=== PATIENT | female | born 1985 | race Two or more races ===

== ENCOUNTER 2016-10-08 11:00 | Outpatient (CLI) | payer OTHER | END 2016-10-08 23:59 | DX: M25.50 Pain in unspecified joint (principal); M79.1 Myalgia; R76.8 Other specified abnormal immunological findings in serum ==

== ENCOUNTER 2017-02-25 07:23 | Outpatient (CLI) | payer OTHER ==
[2017-02-25 12:50] LABS: BILIRUBIN,URINE NEGATIVE (NEGATIVE); PH,URINE 6.5 PH (5.0-7.5)
[2017-02-25 12:57] LABS: BASOPHILS % (AUTO) 0.4 %; EOSINOPHILS # (AUTO) 0.2 10^3/uL (0.0-0.7); EOSINOPHILS % (AUTO) 2.8 %; HCT - HEMATOCRIT 41.7 % (37.0-47.0); HGB - HEMOGLOBIN 14.3 g/dL (12.0-16.0); LYMPHOCYTES # (AUTO) 2.3 10^3/uL (1.5-3.5); LYMPHOCYTES % (AUTO) 31.4 %; MEAN CORPUSCULAR HEMOGLOBIN 33.1 pg (27.0-31.0); MEAN CORPUSCULAR HGB CONC 34.2 g/dL (32.0-36.0); MEAN CORPUSCULAR VOLUME 96.8 fL (81.0-99.0); MEAN PLATELET VOLUME 9.6 fL (7.9-10.8); MONOCYTES # (AUTO) 0.7 10^3/uL (0.0-1.0); MONOCYTES % (AUTO) 9.5 %; NEUTROPHILS % (AUTO) 55.9 %; RED CELL DISTRIBUTION WIDTH 12.9 % (12.0-15.0); UNCORRECTED WHITE BLOOD COUNT 7.2 x10^3/uL; WHITE BLOOD COUNT 7.2 x10^3/uL (4.8-10.8)
[2017-02-25 13:05] LABS: WBC,URINE 0-3 /HPF (0-5)
[2017-02-25 13:48] LABS: ALBUMIN/GLOBULIN RATIO 1.5 (1.0-2.2); BILIRUBIN,TOTAL 0.8 mg/dL (0.2-1.0); BUN - BLOOD UREA NITROGEN 13 mg/dL (6-20); CALCIUM 9.2 mg/dL (8.5-10.3); CARBON DIOXIDE - CO2 26 mmol/L (21-32); CHLORIDE 103 mmol/L (101-111); CREATININE 0.6 mg/dL (0.4-1.0); GFR - MDRD 117 (>89); GLUCOSE 92 mg/dL (70-100); POTASSIUM 3.9 mmol/L (3.5-5.0); SODIUM 137 mmol/L (135-145); TOTAL PROTEIN 7.4 g/dL (6.7-8.2)
[2017-02-27 12:03] LABS: COMPLEMENT COMPONENT C3C 109 mg/dL (90-180); COMPLEMENT COMPONENT C4C 19 mg/dL (16-47)
[2017-03-02 06:53] LABS: ANA SCREEN POSITIVE (NEGATIVE)
== END 2017-02-25 07:24 | disposition home or self-care (01) ==
LOC: LAB.WCP 07:23
PROVIDERS: ATTEND Internal Medicine Rheumatology
DX: K12.0 Recurrent oral aphthae (principal)
CPT/HCPCS: 36415; 80053; 81001; 85025; 85651; 86038; 86140; 86160

== ENCOUNTER 2017-03-17 15:38 | Outpatient (CLI) | payer OTHER ==
--- NOTE | 2017-03-18 14:01 | MRI Report ---
EXAM: RIGHT HAND SECOND DIGIT MR WITHOUT CONTRAST EXAM DATE: 03/17/2017 05:12 PM. CLINICAL HISTORY: Right index finger swelling. COMPARISON: None. TECHNIQUE: Multiplanar, multisequence T1-weighted and fluid-sensitive sequences of the finger without contrast. Other: None. FINDINGS: Bones: No fractures or subluxations. No marrow edema. No bone lesions. Cartilage: The articular cartilage is unremarkable. Ligaments: The radial and ulnar collateral ligaments are intact. Tendons: The flexor and extensor tendons are unremarkable. The visualized pulleys are intact. Musculature: No edema or fatty atrophy. Other: No joint effusions or capsular rupture. Focal area of concern corresponds to a condensation of fat on all pulse sequences, well circumscribed and medial and volar to the flexor mechanism of the s econd finger. This is 9.4 x 11 mm transversely and extends for 13 mm cephalocaudal extent. No abnorma l fluid in the flexor tendon sheath. IMPRESSION: 1. Focal area of concern corresponds to a benign lipoma, located in the lateral volar aspect of the s econd proximal finger, separate and distinct from the otherwise normal-appearing flexor mechanism. [facility] SECTION Referring Provider Line: [phone] SITE ID: [id number]
== END 2017-03-17 15:39 | disposition home or self-care (01) ==
LOC: DI 15:38
DX: D17.79 Benign lipomatous neoplasm of other sites (principal)

== ENCOUNTER 2017-08-05 15:44 | Emergency (ER) | payer OTHER ==
[2017-08-05 15:59] VITALS: BP 122/77
[2017-08-05] MEDS ORDERED: LIDOCAINE PATCH 5% TOP STA (16:02)
--- NOTE | 2017-08-05 16:04 | ED Physician Documentation ---
History of Present Illness - Stated complaint Stated Complaint: PAINFUL RASH LT ARM - Chief complaint Chief Complaint: Wound - Additonal information Additional information: hx from pt 32 f not has mirena pmhx lupus on plaquenil itching burning pain to R tricep region for a few days and now a pink rash with hint of vesicles she has a few valtrex at home already and took a dose prior to coming in Review of Systems Constitutional: denies: Fever : denies: Now EGA Skin: reports: Rash PD PAST MEDICAL HISTORY - Past Medical History Cardiovascular: None Respiratory: Asthma, Other Neuro: Headache/migraine Endocrine/Autoimmune: Systemic lupus erythematosus GI: GERD, Other : None HEENT: Chronic sinusitis Psych: Anxiety Musculoskeletal: Fibromyalgia Derm: None - Past Surgical History Past Surgical History: Yes General: Cholecystectomy, Colonoscopy, EGD Ortho: Arthroscopic surgery, 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) - Present Medications Home Medications: Ambulatory Orders Medication Instructions Recorded Confirmed Indomethacin [Indocin] 25 mg PO BIDWM PRN #20 capsule 07/21/15 10/19/15 Hydroxychloroquine [Plaquenil] 200 mg PO BID 10/19/15 10/19/15 Azithromycin [Zithromax] 250 mg PO DAILY #6 tablet 03/26/16 Budesonide/Formoterol Fumarate 03/26/16 [Symbicort 80-4.5 Mcg Inhaler] Pseudoephedrine [Sudafed] 60 mg 03/26/16 guaiFENesin/CODEINE [Robitussin AC] 5 - 10 ml PO Q6H PRN #120 ml 03/26/16 predniSONE [Deltasone] 60 mg PO DAILY 5 Days tablet 03/26/16 Lidocaine Patch 5% [Lidoderm Patch] 1 each TOP DAILY PRN #10 patch 08/05/17 Valacyclovir HCl [Valtrex] 1,000 mg PO TID #21 tablet 08/05/17 - Allergies Allergies/Adverse Reactions: Allergies Allergy/AdvReac Type Severity Reaction Status Date / Time Cephalosporins Allergy Intermediate Hives Verified 08/05/17 15:54 diphenhydramine Allergy Intermediate Hives Verified 08/05/17 15:54 - Social History Does the pt smoke?: No Smoking Status: Never smoker Does the pt drink ETOH?: Yes Does the pt have substance abuse?: No - Immunizations Immunizations are current?: Yes - POLST Patient has POLST: No PD ED PE NORMAL - Vitals Vital signs reviewed: Yes - Cardiac Cardiac: RRR - Respiratory Respiratory: No respiratory distress, Clear bilaterally - Derm Derm: Other (RUE tricep region small erythematous patch with very fine sup vesicles) Results - Vitals Vitals: Vital Signs - 24 hr 08/05/17 15:51 Heart Rate 86 Respiratory 16 Rate Blood Pressure 122/77 O2 Saturation 100 Oxygen O2 Source Room air PD MEDICAL DECISION MAKING - ED course ED course: sounds c/w shingles though rash still very early on plaquenil so slightly immunocomp - will tx Departure - Departure Disposition: Home, Self Care Clinical Impression: Shingles Qualifiers: Herpes zoster complications: without complications Qualified Code(s): B02.9 - Zoster without complications Condition: Good Instructions: ED Shingles Follow-Up: Abhinav Sanchez MD [Primary Care Provider] - Prescriptions: Lidocaine Patch 5% [Lidoderm Patch] 1 each TOP DAILY PRN #10 patch PRN Reason: Pain Valacyclovir HCl [Valtrex] 1,000 mg PO TID #21 tablet Forms: Activity restrictions
[2017-08-05] MEDS ORDERED: LIDOCAINE PATCH 5% TOP ONE (16:20)
== END 2017-08-05 16:20 | disposition home or self-care (01) ==
LOC: ED 15:44
DX: B02.9 Zoster without complications (principal); M32.9 Systemic lupus erythematosus, unspecified; Z79.52 Long term (current) use of systemic steroids; J45.909 Unspecified asthma, uncomplicated; K21.9 Gastro-esophageal reflux disease without esophagitis; M79.7 Fibromyalgia
CPT/HCPCS: 99283; A9270

== ENCOUNTER 2017-11-11 08:00 | Outpatient (CLI) | payer OTHER | END 2017-11-11 08:01 | disposition home or self-care (01) | LOC: LAB.R 08:00 | PROVIDERS: ATTEND Internal Medicine Gastroenterology | DX: K50.90 Crohn's disease, unspecified, without complications (principal) | CPT/HCPCS: 83993 ==

== ENCOUNTER 2018-05-13 13:11 | Outpatient (CLI) | payer OTHER | END 2018-05-13 13:12 | disposition home or self-care (01) | LOC: LAB 13:11 | PROVIDERS: ATTEND Family Medicine | DX: R04.2 Hemoptysis (principal) | CPT/HCPCS: 36415; 81599; 86480 ==

== ENCOUNTER 2018-09-22 13:48 | Outpatient (CLI) | payer OTHER ==
[2018-09-23 12:28] LABS: HEPATITIS B SURFACE ANTIGEN NON-REACTIVE (NON-REACTIVE)
[2018-09-24 11:51] LABS: HCV RNA QNT <1.18 NOT DETECTED Log IU/mL (NOT DETECTED); HCV RNA QUANT RT PCR <15 NOT DETECTED IU/mL (NOT DETECTED)
== END 2018-09-22 13:49 | disposition home or self-care (01) ==
LOC: LAB.F 13:48
PROVIDERS: ATTEND Internal Medicine Gastroenterology
DX: K50.90 Crohn's disease, unspecified, without complications (principal)
CPT/HCPCS: 36415; 87340; 87522

== ENCOUNTER 2018-10-19 08:35 | Outpatient (CLI) | payer OTHER | END 2018-10-19 23:59 | disposition home or self-care (01) | LOC: LAB.WCP 08:35 | PROVIDERS: ATTEND Internal Medicine Gastroenterology | DX: K50.90 Crohn's disease, unspecified, without complications (principal) | CPT/HCPCS: 83993 ==

== ENCOUNTER 2019-03-02 06:44 | Outpatient (CLI) | payer OTHER | END 2019-03-02 06:45 | disposition home or self-care (01) | LOC: LAB 06:44 | PROVIDERS: ATTEND Internal Medicine | DX: Z53.9 Procedure and treatment not carried out, unspecified reason (principal) | CPT/HCPCS: 36415; 86317; 86735; 86762; 86765 ==

== ENCOUNTER 2019-03-20 12:52 | Outpatient (CLI) | payer OTHER | END 2019-03-20 12:53 | disposition home or self-care (01) | LOC: LAB 12:52 | PROVIDERS: ATTEND Internal Medicine Gastroenterology | DX: R19.7 Diarrhea, unspecified (principal); K50.90 Crohn's disease, unspecified, without complications | CPT/HCPCS: 81599; 83993; 86592; 87045; 87046; 87177; 87209; 87329; 87493 ==

== ENCOUNTER 2019-10-05 09:52 | Outpatient (CLI) | payer OTHER ==
--- NOTE | 2019-10-05 15:36 | XRAY Report ---
Reason: SOMATIC DYSFUNCTION LUMBAR Procedure Date: 10/05/2019 Accession Number: [id number] / [id number] Procedure: WCP - Lumbar Spine 2 View CPT Code: Final Report FULL RESULT: EXAM: LUMBOSACRAL SPINE RADIOGRAPHY EXAM DATE: 10/05/2019 09:52 AM. CLINICAL HISTORY: SOMATIC DYSFUNCTION LUMBAR. Fall. Pain. COMPARISONS: None. TECHNIQUE: 2 views. FINDINGS: Alignment: Normal. No spondylolisthesis or scoliosis. Bones: 5 lumbar vertebrae. No fractures or bone lesions. Disks: Normal. Disk heights are maintained. Facets: No degenerative changes. Sacroiliac Joints: Unremarkable. Soft Tissues: Unremarkable. IMPRESSION: Normal lumbar spine radiography. [facility]
--- NOTE | 2019-10-05 15:37 | XRAY Report ---
Reason: LEFT, RIGHT TROCHANTERIC BURSITIS Procedure Date: 10/05/2019 Accession Number: [id number] / [id number] Procedure: WCP - Pelvis 1 View CPT Code: Final Report FULL RESULT: EXAM: PELVIS RADIOGRAPHY EXAM DATE: 10/05/2019 09:52 AM. CLINICAL HISTORY: LEFT, RIGHT TROCHANTERIC BURSITIS. Pain. COMPARISON: None. TECHNIQUE: 1 view. FINDINGS: Bones: Normal. No fracture or bone lesion. Joints: The visualized hip, pubis symphysis, and sacroiliac joints are preserved. No subluxation. Soft Tissues: Unremarkable. No soft tissue calcifications. IMPRESSION: Normal pelvis radiography. [facility]
== END 2019-10-05 23:59 | disposition home or self-care (01) ==
LOC: DI.WCP 09:52
PROVIDERS: ATTEND Family Medicine
DX: M99.03 Segmental and somatic dysfunction of lumbar region (principal); M70.61 Trochanteric bursitis, right hip; M70.62 Trochanteric bursitis, left hip
CPT/HCPCS: 72100; 72170

== ENCOUNTER 2020-03-21 11:41 | Outpatient (CLI) | payer OTHER | END 2020-03-21 11:42 | disposition home or self-care (01) | LOC: LAB 11:41 | PROVIDERS: ATTEND Internal Medicine Gastroenterology | DX: K50.90 Crohn's disease, unspecified, without complications (principal) | CPT/HCPCS: 36415; 81599; 86480 ==

== ENCOUNTER 2020-08-05 12:59 | Outpatient (CLI) | payer OTHER ==
[2020-08-05 13:09] LABS: BILIRUBIN,URINE NEGATIVE (NEGATIVE); GLUCOSE, URINE (UA) NEGATIVE (NEGATIVE); KETONES,URINE (UA) NEGATIVE (NEGATIVE); LEUKOCYTE ESTERASE, URINE NEGATIVE (NEGATIVE); NITRITE,URINE NEGATIVE (NEGATIVE); OCCULT BLOOD,URINE MODERATE (NEGATIVE); PROTEIN,URINE NEGATIVE (NEGATIVE); UROBILINOGEN,URINE 0.2 (NORMAL) E.U./dL (NORMAL)
[2020-08-05 13:11] LABS: CLARITY,URINE CLEAR (CLEAR)
[2020-08-05 13:25] LABS: SQUAMOUS EPITHELIAL CELL,UR FEW Squamous (<= Few)
[2020-08-05 13:26] LABS: BACTERIA,URINE Rare /HPF (None Seen); MUCUS,URINE Few Strands
== END 2020-08-05 13:00 | disposition home or self-care (01) ==
LOC: LAB 12:59
PROVIDERS: ATTEND Family Medicine
DX: R30.0 Dysuria (principal)
CPT/HCPCS: 81001; 87086

== ENCOUNTER 2020-08-06 12:59 | Outpatient (CLI) | payer OTHER ==
[2020-08-06 13:50] VITALS: BP 113/70
--- NOTE | 2020-08-06 13:50 | SLEEP CARE CONSULTATION ---
Information from patient questionnaire entered by Tammy Davis. I have reviewed and concur with the information entered by Tammy Davis. This document represents the service I personally performed and the decisions made by me, Shreya Smith ARNP. History of Present Illness Service Date and Time: 08/06/2020 1259 Reason for Visit: New patient Chief Complaint: reports: Unrefreshed sleep, Snoring, Observed pauses in breathing, Fatigue. denies: Insomnia, Excessive daytime sleepiness, Frequent awakenings at night Date of Onset: several years Usual bedtime: 6700-9258 Time it takes to fall asleep: 5.2 seconds Snores at night: Yes (badly) Observed to quit breathing while asleep: Yes Sleeps alone due to snoring: No Number of times waking at night: 0-2 Reasons for waking at night: reports: Choking (not often), Snoring, Gasping for air (not often), Bathroom Toss, Turn, or Twitch while sleeping: Yes (*twitch) Recalls having dreams: Yes Usually gets out of bed at: 1562-1360 Feels refreshed in the morning: Yes Morning headache: No (only when grinds her sleep, uses mouth guard) Sleepy or fatigued during the day: Yes (sometimes) Ever fallen asleep while driving: No Takes day naps: Yes () Dreams during day naps: No Prior sleep studies: Yes Year and Where: 2009 or 2010 Additional HPI information: I had the pleasure of seeing JAVIER AG today regarding the possibility of her having a sleep disorder. Her current complaints are snoring and observed pauses in breathing. She had a sleep study many years ago that was negative for sleep apnea. She states her snoring has gotten worse and her has encouraged her to get it checked out. She has seen an ENT specialist for her multiple allergy problems and feels she sleeps better when she adheres better to her allergy medication regime. She has been told she has a minor sinus deviation and her doctor is willing to take out her tonsils to help reduce her snoring. She is here to rule out sleep apnea due to worsening. She states her mother and a grandfather both have sleep apnea and been on CPAP machines. She has a history of Crohn's disease and Lupus that is in remission. 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 - Parasomnia Symptoms Ever been unable to move upon waking from sleep: No Walks in sleep: No Talks in sleep: Yes Ever acted out dreams in sleep: No Ever felt weak in the knees when startled or emotional: No Bothered by creepy, crawly, restless sensations in legs: No Problems with memory or concentration: Yes (memory, has autoimmune disease) Subjective Initial [place] Sleepiness Scale score: 10 (in 2020) Past Medical History Past Medical History: reports: Arthritis, Fibromyalgia, Anxiety, Asthma, Depression, GERD, Other (chrons disease, SLE). 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 Patient is and lives in [place]. Have you smoked in the past 12 months: No Alcohol use: Yes Alcohol amount and frequency: 1-2 weekly or biweekly Caffeine use: Yes Caffeine amount and frequency: 1-2 cups/day Family History Family history of sleep disordered breathing: Yes Family Hx Sleep Apnea: Mother: Snoring, Sleep apnea - Treated, Sibling: Snoring, Grandparent: Snoring, Sleep apnea - Treated Allergies and Home Medications Drug allergies reviewed: Yes (cephalosporins, diphenhydramine) Home medication list reviewed: Yes Allergy and home medication list: Symbicort Flonase Astalin Humira zyrtec Sudafed Vitamin E Vitamin D IP6 Zinc probiotic as needed: Ibuprofen Aleve Tylenol oxycodone Review of Systems Weight loss over past 5 years: 40 Cardiovascular: denies: high blood pressure, irregular heart rate or pulse Respiratory: reports: shortness of breath, wheeze Gastrointestinal: reports: heartburn (intermittant), difficulty swallowing (intermittant), nausea (intermittant), vomitting (intermittant), diarrhea (intermittant), abdominal pain (intermittant), other (has Chrons disease) Urinary: reports: frequency, urgency Neurological: reports: headaches Psychiatric: reports: anxiety, depression Ear/Nose/Throat: reports: nasal congestion, sinus problems, wisdom teeth removed. denies: nose bleeds, dry mouth/throat, injury to nose, tonsillectomy Musculoskeletal: reports: joint pain, neck pain, back pain Immunologic: reports: sneezing, itching, allergies to food or environment (*environment) Physical Exam Blood Pressure: 113/70 Cuff size: wrist Heart Rate: 84 O2 Saturation: 98 Height: 5 ft 7 in Weight: 234 lb Body Mass Index: 36.6 BMI Classification: Obese Neck circumference: 14.5 (inches) HEENT: No craniofacial malformation Nostrils: patent to airflow Turbinates: normal Mouth and throat: narrow oropharynx Hard palate: arched Uvula visualization: 50% Mallampati Class II Tongue: enlarged in size with teeth brown on lateral edges Tonsils: 1+ Chin and jaw: normal size and position Neck: normal w/o lymphadenopathy or thyromegaly Heart: regular rate and rhythm Lungs: clear bilaterally Impression and Plan 1. Suspected Obstructive Sleep Apnea-Hypopnea Syndrome, as suggested by a history of loud and irregular snoring, observed cessation of breath while asleep, gasping or choking in sleep, unrefreshed sleep, and some cognitive impairment. I reviewed with patient that a narrow oropharynx and obesity are common predisposing factors for obstructive sleep apnea-hypopnea syndrome. I recommend proceeding to polysomnography to confirm the diagnosis and to assess severity. If the patient has significant sleep disordered breathing, a manual CPAP titration study will also be performed to find the optimal treatment pressure. I informed the patient of what the sleep studies involve and after some discussion, obtained agreement to proceed. The pathophysiology of obstructive sleep apnea-hypopnea syndrome was discussed with the patient and health risks of cardiovascular and cerebrovascular disease if not treated. AASM brochure for obstructive sleep apnea-hypopnea syndrome given and reviewed. 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 Patient agreed to plan. * Schedule polysomnography +- manual CPAP titration study. * Avoid long distance driving or driving when feeling sleepy. * Avoid alcohol, sedative and muscle relaxant around bedtime. * Attempt to lose weight. * Review instructions provided by trained office staff on how to prepare for the sleep study. * Return for follow-up after sleep study completed. Visit Type: In Office Provider Statement: I spent 100% of the Face to Face Visit with the patient with greater than 50% spent counseling the patient and coordination of care.
== END 2020-08-06 13:00 | disposition home or self-care (01) ==
LOC: SC 12:59
PROVIDERS: ATTEND Nurse Practitioner Family
DX: R06.83 Snoring (principal); R06.81 Apnea, not elsewhere classified; G47.8 Other sleep disorders; R41.89 Other symptoms and signs involving cognitive functions and awareness; E66.9 Obesity, unspecified; Z68.36 Body mass index [BMI] 36.0-36.9, adult
CPT/HCPCS: 99203; 99212

== ENCOUNTER 2020-09-04 08:59 | Outpatient (CLI) | payer OTHER | END 2020-09-04 09:00 | disposition home or self-care (01) | LOC: SC 08:59 | PROVIDERS: ATTEND Nurse Practitioner Family | DX: G47.33 Obstructive sleep apnea (adult) (pediatric) (principal); E66.9 Obesity, unspecified; Z68.36 Body mass index [BMI] 36.0-36.9, adult | CPT/HCPCS: 95806 ==

== ENCOUNTER 2020-10-10 09:53 | Outpatient (CLI) | payer OTHER ==
--- NOTE | 2020-10-10 10:32 | SLEEP CARE CONSULTATION ---
Information from patient questionnaire entered by Naina Mills. I have reviewed and concur with the information entered by Naina Mills. This document represents the service I personally performed and the decisions made by , Shreya Smith ARNP. History of Present Illness Service Date and Time: 10/10/2020 0953 Initial [place] Sleepiness Scale score: 10 (in 2020) Current [place] Sleepiness Scale score: 9 Additional HPI information: JAVIER AG returns for follow up and results of the recently performed home sleep study. I explained the pathophysiology behind obstructive sleep apnea. We then spent quite a bit of time discussing different treatment options. For mild obstructive sleep apnea, surgery and oral appliance are alternatives to nasal CPAP therapy but in moderate or severe cases, nasal CPAP is the most effective and reliable treatment. Because apnea is primarily in supine position, then positional management therapy could be effective. Methods discussed such as positioning with pillows, using a T-shirt with tennis balls in the back, and shown commercial products that have a pillow format on back to prevent supine sleep. I reviewed the impact of weight changes on sleep apnea and strongly recommended losing weight. AASM patient education Non Pap treatment pamphlet reviewed and given to patient. Patient was cautioned about risks of drowsy driving until sleepiness symptoms resolve. Sleep Study - Results Type of Sleep Study: Home sleep study Prior sleep studies: Yes Year and Where: 2009 or 2010 Polysomnography/Home Sleep Study results: Physician Impression: The quality of the study is good. The length of the study is adequate (> 240 minutes). Please also see the tabulated and graphic data. 1. Obstructive Sleep Apnea-Hypopnea (ICD-10 G47.33), moderate, with an AHI of 15.1/hr and era SaO2 of 90%. During the study, the patient had 54 apneas (54 obstructive, 0 central, 0 mixed) and 51 hypopneas. The longest episode lasted 62.5 seconds. The respiratory events occurred almost exclusively during supine sleep (supine AHI was 44.9 and non-supine, 1.47). 2. Hypoxemia (ICD-10 R09.02), , with the lowest oxygen saturation of 90 % and 0.0 minutes with SaO2 under 90%. Baseline oxygen saturation was normal (Average oxygen saturation was 96%). Allergies and Home Medications Drug allergies reviewed: Yes (cephalosporins, diphenhydramine) Home medication list reviewed: Yes Allergy and home medication list: New medications started: Cymbalta Meloxicam Advair HFA Review of Systems Review of systems same as previous: Yes (no changes) Physical Exam Heart Rate: 71 O2 Saturation: 98 Height: 5 ft 7 in Weight: 239 lb Body Mass Index: 37.4 BMI Classification: Obese Impression and Plan 1. Obstructive Sleep Apnea-Hypopnea Syndrome, moderate, with lowest oxygen saturation of 90%. Obviously this is the cause of the patients symptoms of unrefreshed sleep, and excessive daytime sleepiness. Positive pressure therapy could benefit her Crohns, Fibromyalgia, asthma, anxiety, depression and gastric reflux. I reviewed options of treatment including oral appliance, CPAP and positional management. Since patients apnea is primarily in supine position, patient advised that she could try positional therapy and she opted to go with this plan. She is also advised to lose weight as this will reduce snoring and apnea. An oral appliance can also be used for snoring but often is not covered by insurance. Follow up is scheduled for one-two months to check effectiveness. Patient also states she is going to follow up with her ENT specialist and possibly arrange to have her tonsils removed. I encouraged her to follow up here as scheduled but she may wait 3 months if she has surgery in the next 1-2 months. She voiced understanding. * Positional therapy. * Attempt to lose weight. * Avoid alcohol consumption near bedtime. * Avoid supine sleep. * The patient is again cautioned about driving until sleepiness completely resolves. * Return 1-2 months. I will assess response to therapy at that time. Counseling Topics: Weight loss health impact Visit Type: In Office Time Spent with Patient (minutes): 22 Provider Statement: I spent 100% of the Face to Face Visit with the patient with greater than 50% spent counseling the patient and coordination of care.
== END 2020-10-10 09:54 | disposition home or self-care (01) ==
LOC: SC 09:53
PROVIDERS: ATTEND Nurse Practitioner Family
DX: G47.33 Obstructive sleep apnea (adult) (pediatric) (principal); E66.9 Obesity, unspecified; Z68.37 Body mass index [BMI] 37.0-37.9, adult
CPT/HCPCS: 99212; 99213

== ENCOUNTER 2020-10-30 07:00 | Outpatient (CLI) | payer OTHER ==
[2020-10-30 17:32] LABS: CANDIDA GROUP DNA NEGATIVE (NEGATIVE); CANDIDA KRUSEI DNA NEGATIVE (NEGATIVE); TRICHOMONAS VAGINALIS DNA NEGATIVE (NEGATIVE)
== END 2020-10-30 23:59 | disposition home or self-care (01) ==
LOC: LAB.R 07:00
PROVIDERS: ATTEND Family Medicine
DX: N89.8 Other specified noninflammatory disorders of vagina (principal)
CPT/HCPCS: 87661; 87801

== ENCOUNTER 2020-12-12 15:55 | Outpatient (CLI) | payer OTHER ==
--- NOTE | 2020-12-12 16:26 | SLEEP CARE CONSULTATION ---
Information from patient questionnaire entered by Yen Henriquez. I have reviewed and concur with the information entered by Yen Henriquez. This document represents the service I personally performed and the decisions made by me, Shreya Smith ARNP. History of Present Illness Service Date and Time: 12/12/2020 1555 Previous diagnosis: Moderate, Obstructive Sleep Apnea-Hypopnea Syndrome AHI: 15.1 Reason for follow up: other (2-month followup - positional) Prior sleep studies: Yes Year and Where: 2019 [facility] Type of Sleep Study: Home sleep study HPI additional information: JAVIER AG was diagnosed to have moderate, AHI 15.1, obstructive sleep apnea- hypopnea syndrome and returned today for two month positional therapy follow-up. CPAP Compliance Data Compliance data discussion: Patient has been trying to use pillow splinting to stay on her side but this has not been very successful. She has slept with her back against her which does work and she stays on her side. 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 Subjective Initial [place] Sleepiness Scale score: 10 (in 2019) Current [place] Sleepiness Scale score: 8 Allergies and Home Medications Home medication list reviewed: Yes (Cymbalta for fibromyalgia) Review of Systems Review of systems same as previous: Yes (no changes) Physical Exam Heart Rate: 81 O2 Saturation: 97 Height: 5 ft 7 in Weight: 240 lb Body Mass Index: 37.5 BMI Classification: Obese Impression and Plan 1. Obstructive Sleep Apnea-Hypopnea Syndrome, moderate. On positional therapy, the patient has better sleep quality and is more rested overall. She also started Cymbalta over 2 months ago and feels this has been helping with her fibromyalgia and fatigue. She has decided that she would like to try the CPAP machine since she is having difficulty staying on her side. She has been using her to stay in position with her back up against him at night. She is about to go away to school and states the pillow positioning does not work for her. She thinks the CPAP might work better for her overall. The patient will be started on nasal autoCPAP therapy with pressure set at 4-15 cmH2O. Compliance guidelines also reviewed. A copy of compliance guidelines will be given for reference at check out. Because the apnea is more severe supine, I instructed to avoid sleeping supine using pillow positioning until able to start CPAP use. * Nasal auto CPAP therapy, pressure at 4-15 cm H2O. * Attempt to lose weight. * Avoid supine sleep until using CPAP. * Return one month after CPAP obtained. I will assess response to therapy and compliance at that time. Counseling Topics: Weight loss health impact Visit Type: In Office Time Spent with Patient (minutes): 21 Provider Statement: I spent 100% of the Face to Face Visit with the patient with greater than 50% spent counseling the patient and coordination of care.
== END 2020-12-12 15:56 | disposition home or self-care (01) ==
LOC: SC 15:55
PROVIDERS: ATTEND Nurse Practitioner Family
DX: G47.33 Obstructive sleep apnea (adult) (pediatric) (principal); E66.9 Obesity, unspecified; Z68.37 Body mass index [BMI] 37.0-37.9, adult
CPT/HCPCS: 99212; 99213

== ENCOUNTER 2021-01-21 10:12 | Outpatient (CLI) | payer OTHER ==
--- NOTE | 2021-01-21 10:42 | SLEEP CARE CONSULTATION ---
Information from patient questionnaire entered by Naina Mills. I have reviewed and concur with the information entered by Naina Mills. This document represents the service I personally performed and the decisions made by , Shreya Smith ARNP. History of Present Illness Service Date and Time: 01/21/2021 1012 Previous diagnosis: Moderate, Obstructive Sleep Apnea-Hypopnea Syndrome AHI: 15.1 Reason for follow up: first compliance Equipment type: CPAP [facility] Mask style: Full face Backup mask available: No (will keep old mask when replaced) Last cushion change: 1 month Prior sleep studies: Yes Year and Where: 2019 - [facility] Type of Sleep Study: Home sleep study HPI additional information: JAVIER AG was diagnosed to have moderate, AHI 15.1, obstructive sleep apnea- hypopnea syndrome and returned today for CPAP therapy first compliance follow- up. CPAP Compliance Data - Data Reviewed with Patient Average duration of nightly device use: 6 hr 13 min Compliance rate %: 63.3 Current pressure setting (cmH2O): 4-15 (median 5.9, avg 8.1, peak 9.2) Humidity settin Heated hose settin Average residual AHI: 3.7 Average large leak: 1 min 30 sec Subjective Patient concerns: reports: aerophagia. denies: mask discomfort, air blowing in eyes, mask leak noise, condensation in mask/hose, nasal congestion, dry mouth, nose, throat, epistaxis, other Observed to snore while using device: No Current pressure setting perceived as: comfortable On therapy, patient: reports: sleeping better, awakening more refreshed, being more awake and alert during the day, more rested overall. denies: drowsiness while driving Initial [place] Sleepiness Scale score: 10 (in 2019) Current [place] Sleepiness Scale score: 7 Allergies and Home Medications Home medication list reviewed: Yes (no new meds) Review of Systems Review of systems same as previous: Yes (tonsillectomy December 2020) Physical Exam Heart Rate: 74 O2 Saturation: 98 Height: 5 ft 7 in Weight: 237 lb Body Mass Index: 37.0 BMI Classification: Obese Impression and Plan 1. Obstructive Sleep Apnea-Hypopnea Syndrome, moderate, with fair treatment compliance and good apnea control. On CPAP therapy, the patient has better sleep quality and is more rested overall. She has significant improvement of her sleep apnea and is happy with her treatment so far. She has a few days with some aerophagia but it has not been every night. I will adjust her pressure to 7-9 cmH2O to reflect what she has been using and follow up in 1-2 months. Patient is leaving to go to school in [place] for next 14 months but is not moving permanently. She will be coming back to see her and child who will be living here. Patient's apnea severity and rationale for treatment to reduce apnea, improve sleep quality and reduce cardiovascular and cerebrovascular events was reviewed. I also reviewed the benefit of consistent device use of CPAP for gastric reflux, depression, anxiety and fibromyalgia. * Change auto CPAP pressure to 7-9 cmH2O * Notify me if snoring with mask or feeling that the pressure is too much or too little * Attempt to lose weight * Call this office if any problems using CPAP * Return for follow up in 1-2 months, or sooner if concerns arise Counseling Topics: Spare mask, Weight loss health impact Visit Type: In Office Time Spent with Patient (minutes): 23 Provider Statement: I spent 100% of the Face to Face Visit with the patient with greater than 50% spent counseling the patient and coordination of care.
== END 2021-01-21 10:13 | disposition home or self-care (01) ==
LOC: SC 10:12
PROVIDERS: ATTEND Nurse Practitioner Family
DX: G47.33 Obstructive sleep apnea (adult) (pediatric) (principal); E66.9 Obesity, unspecified; Z68.37 Body mass index [BMI] 37.0-37.9, adult
CPT/HCPCS: 99212; 99213

== ENCOUNTER 2021-03-13 08:42 | Outpatient (CLI) | payer OTHER ==
--- NOTE | 2021-03-13 08:43 | SLEEP CARE CONSULTATION ---
Information from patient questionnaire entered by Tammy Davis. I have reviewed and concur with the information entered by Tammy Davis. This document represents the service I personally performed and the decisions made by , Shreya Smith ARNP. History of Present Illness Service Date and Time: 03/13/2021 0820 Previous diagnosis: Moderate, Obstructive Sleep Apnea-Hypopnea Syndrome AHI: 15.1 Reason for follow up: other (6 week follow up with pressure change) Equipment type: CPAP Equipment obtained from: Other ([employer] getting supplies as needed) Mask style: Full face Backup mask available: No (old mask) Last cushion change: 2 months Prior sleep studies: Yes Year and Where: 2019 [facility] Type of Sleep Study: Home sleep study HPI additional information: JAVIER AG was diagnosed to have moderate, AHI 15.1, obstructive sleep apnea- hypopnea syndrome and returns via Telehealth visit today for CPAP therapy 6 week with pressure change follow-up. Sleep Study - Results Type of Sleep Study: Home sleep study Prior sleep studies: Yes Year and Where: 2019 [facility] CPAP Compliance Data - Data Reviewed with Patient Average duration of nightly device use: 6 hours 49 minutes Compliance rate %: 83.3 Current pressure setting (cmH2O): 7-8.5 Humidity settin Heated hose settin Average residual AHI: 4 Central apnea: 0.6 Obstructive apnea: 1.5 Average large leak: 0 seconds Subjective Patient concerns: denies: aerophagia, mask discomfort, mask leak noise, condensation in mask/hose, nasal congestion, dry mouth, nose, throat, epistaxis, other Observed to snore while using device: No Current pressure setting perceived as: comfortable On therapy, patient: reports: sleeping better, awakening more refreshed, being more awake and alert during the day, more rested overall. denies: drowsiness while driving Initial [place] Sleepiness Scale score: 10 (in 2020) Current [place] Sleepiness Scale score: 5 Allergies and Home Medications Home medication list reviewed: Yes (Bcomplex, Biotin) Review of Systems Review of systems same as previous: Yes (no changes) Physical Exam Vital signs obtained and entered by: Telehealth visit to reduce exposure during Covid pandemic Height: 5 ft 7 in Impression and Plan 1. Obstructive Sleep Apnea-Hypopnea Syndrome, moderate, with good treatment compliance and good apnea control. On CPAP therapy, the patient has better sleep quality and is more rested overall. Patient has significant improvement of her sleep apnea and is very satisfied with her treatment thus far. She states her last pressure change made all the difference and she no longer has any aerophagia. She did develop a fungal skin infection due to oils on her face with mask use. Her doctor treated it with metronidazole and it cleared up. She is now using a toner cleanser on her face prior to bedtime and has not had any further infections or rashes. Patient states she is going to try to lose weight and found a video on YouTube about toning exercises to help with snoring and sleep apnea that she is going to try. I encouraged her to do so as losing weight and toning her muscles can help reduce apnea severity. She voiced understanding and agreement with this plan of care. I will follow up with her in about 3 months. Patient's apnea severity and rationale for treatment to reduce apnea, improve sleep quality and reduce cardiovascular and cerebrovascular events was reviewed. I also reviewed the benefit of consistent device use of CPAP for gastric reflux, depression, anxiety and fibromyalgia. * Continue auto CPAP pressure at 7-8.5 cmH2O * Notify me if snoring with mask or feeling that the pressure is too much or too little * Attempt to lose weight * Call this office if any problems using CPAP * Return for follow up in 3 months, or sooner if concerns arise Counseling Topics: Spare mask, Weight loss health impact Visit Type: Telehealth Video Video Type: VSee Patient Location: Home Location of Provider: Office Patient agrees and consents to this telehealth visit type: Yes Patient agrees to have their insurance billed: Yes Time Spent with Patient (minutes): 19 Provider Statement: I spent 100% of the Telehealth Video Call with the patient with greater than 50% spent counseling the patient and coordination of care.
== END 2021-03-13 08:43 | disposition home or self-care (01) ==
LOC: SC 08:42
PROVIDERS: ATTEND Nurse Practitioner Family
DX: G47.33 Obstructive sleep apnea (adult) (pediatric) (principal)

== ENCOUNTER 2021-06-13 15:11 | Outpatient (CLI) | payer OTHER ==
--- NOTE | 2021-06-13 15:30 | SLEEP CARE CONSULTATION ---
Information from patient questionnaire entered by Yen Henriquez. I have reviewed and concur with the information entered by Yen Henriquez. This document represents the service I personally performed and the decisions made by me, Shreya Smith ARNP. History of Present Illness Service Date and Time: 06/13/2021 1500 Previous diagnosis: Moderate, Obstructive Sleep Apnea-Hypopnea Syndrome AHI: 15.1 Reason for follow up: three month Equipment type: CPAP Equipment obtained from: Other ([employer]; getting supplies as needed) Mask style: Full face Prior sleep studies: Yes Year and Where: 2019 [facility] Type of Sleep Study: Home sleep study HPI additional information: JAVIER AG was diagnosed to have moderate, AHI 15.1, obstructive sleep apnea- hypopnea syndrome and returns via video Telehealth visit today for CPAP therapy three month follow-up. CPAP Compliance Data - Data Reviewed with Patient Average duration of nightly device use: 5 h 2 min Compliance rate %: 47.8 Current pressure setting (cmH2O): 7-8 Humidity settin Heated hose settin Average residual AHI: 4.0 Average large leak: 0 sec Subjective Missed days of use due to: reports: other (recall, not using) Patient concerns: denies: aerophagia, mask discomfort, air blowing in eyes, mask leak noise, condensation in mask/hose, nasal congestion, dry mouth, nose, throat, epistaxis, other Observed to snore while using device: No Current pressure setting perceived as: comfortable On therapy, patient: reports: sleeping better, awakening more refreshed, being more awake and alert during the day, more rested overall, other (helps with feeling down days, improves them). denies: drowsiness while driving Initial [place] Sleepiness Scale score: 10 (in 2019) Current [place] Sleepiness Scale score: 2 Allergies and Home Medications Home medication list reviewed: Yes (no changes) Review of Systems Review of systems same as previous: Yes (no changes) Physical Exam Vital signs obtained and entered by: Telehealth visit to reduce exposure during Covid pandemic Height: 5 ft 7 in Impression and Plan 1. Obstructive Sleep Apnea-Hypopnea Syndrome, moderate, with poor treatment compliance and good apnea control. On CPAP therapy, the patient has better sleep quality and is more rested overall. Patient has not been using her device because it is on the recall and she and her are concerned about her health with its use. Patient has already registered their device for the recall. Patient denies any black particles seen in machine or hoses, any unusual odors coming from device. Patient has not experienced any physical symptoms such as upper airway irritation, headache, skin or eye irritation, asthma, nausea/vomiting, difficulty breathing or chest pain. Patient informed that they may use an inline CPAP filter that they can obtain online to reduce chance of any particles being inhaled or ingested. We discussed thoroughly the health risks of not using the CPAP versus continuing use with the filter in place. If patient is not able to sleep due to waking up choking, gasping for air or other respiratory distress that they may decide to continue using it until it is either replaced or repaired. Patient is in normal range on their side and may practice positional therapy by staying off their back to control apnea or try to obtain an oral appliance to control apnea. Patient would like to try positional therapy until she is able to get her CPAP replaced or fixed. Patient voiced understanding and agreement with plan. Patient's apnea severity and rationale for treatment to reduce apnea, improve sleep quality and reduce cardiovascular and cerebrovascular events was reviewed. I also reviewed the benefit of consistent device use of CPAP for depression, anxiety and fibromyalgia. * Pause on APAP use: current pressure at 7-8 cmH2O * Positional therapy until her recalled device is replaced * Attempt to lose weight * Call this office if any problems * Return for follow up in 3 months, or sooner if concerns arise Counseling Topics: Weight loss health impact Visit Type: Telehealth Video Video Type: ee Patient Location: car Location of Provider: Office Patient agrees and consents to this telehealth visit type: Yes Patient agrees to have their insurance billed: Yes Time Spent with Patient (minutes): 22 Provider Statement: I spent 100% of the Telehealth Video Call with the patient with greater than 50% spent counseling the patient and coordination of care.
== END 2021-06-13 15:12 | disposition home or self-care (01) ==
LOC: SC 15:11
PROVIDERS: ATTEND Nurse Practitioner Family
DX: G47.33 Obstructive sleep apnea (adult) (pediatric) (principal)

== ENCOUNTER 2022-09-09 14:18 | Outpatient (CLI) | payer BC ==
[2022-09-09 21:54] LABS: BACTERIAL VAGINOSIS DNA NEGATIVE (NEGATIVE); CANDIDA GLABRATA DNA NEGATIVE (NEGATIVE); CANDIDA GROUP DNA POSITIVE (NEGATIVE); CANDIDA KRUSEI DNA NEGATIVE (NEGATIVE); TRICHOMONAS VAGINALIS DNA NEGATIVE (NEGATIVE)
== END 2022-09-09 14:19 | disposition home or self-care (01) ==
LOC: LAB 14:18
PROVIDERS: ATTEND Obstetrics & Gynecology
DX: N89.8 Other specified noninflammatory disorders of vagina (principal)
CPT/HCPCS: 81514

== ENCOUNTER 2022-09-17 08:00 | Outpatient (CLI) | payer BC ==
[2022-09-17 22:33] LABS: BACTERIAL VAGINOSIS DNA POSITIVE (NEGATIVE); CANDIDA GLABRATA DNA NEGATIVE (NEGATIVE); CANDIDA GROUP DNA NEGATIVE (NEGATIVE); CANDIDA KRUSEI DNA NEGATIVE (NEGATIVE); TRICHOMONAS VAGINALIS DNA NEGATIVE (NEGATIVE)
== END 2022-09-17 23:59 | disposition home or self-care (01) ==
LOC: LAB.WC 08:00
PROVIDERS: ATTEND Obstetrics & Gynecology
DX: N89.8 Other specified noninflammatory disorders of vagina (principal)
CPT/HCPCS: 81514

== ENCOUNTER 2022-12-09 22:07 | Outpatient (CLI) | payer BC ==
--- NOTE | 2022-12-10 09:10 | XRAY Report ---
PROCEDURE: Shoulder 2 View LT INDICATIONS: Pain in Left Shoulder TECHNIQUE: 2 views of the shoulder were acquired. COMPARISON: None. FINDINGS: Bones: No fractures or dislocations. No suspicious bony lesions. Visualized ribs appear intact. Soft tissues: No suspicious soft tissue calcifications. IMPRESSION: Negative left shoulder. Reviewed by: Francisco Javier Carcamo MD on 12/10/2022 9:09 AM PDT Approved by: Francisco Javier Carcamo MD on 12/10/2022 9:09 AM PDT Station ID: [id number]
== END 2022-12-09 22:08 | disposition home or self-care (01) ==
LOC: DI.WOS 22:07
PROVIDERS: ATTEND Nurse Practitioner
DX: M25.512 Pain in left shoulder (principal)

== ENCOUNTER 2023-02-04 08:00 | Outpatient (CLI) | payer BC, OTHER ==
--- NOTE | 2023-02-04 12:20 | XRAY Report ---
PROCEDURE: Shoulder 2 View LT INDICATIONS: LEFT SHOULDER PAIN TECHNIQUE: 2 views of the shoulder were acquired. COMPARISON: X-ray shoulder 12/09/2022 FINDINGS: Bones: No fractures or dislocations. No suspicious bony lesions. Visualized ribs appear intact. Soft tissues: No suspicious soft tissue calcifications. IMPRESSION: No acute osseous abnormality. If concern persists, MRI is recommended. Reviewed by: Uzma Mendieta MD on 02/04/2023 12:18 PM PDT Approved by: Uzma Mendieta MD on 02/04/2023 12:18 PM PDT Station ID: [id number]
== END 2023-02-04 23:59 | disposition home or self-care (01) ==
LOC: DI.WOS 08:00
PROVIDERS: ATTEND Physician Assistant Surgical
DX: M25.512 Pain in left shoulder (principal)

== ENCOUNTER 2023-03-26 12:37 | Outpatient (CLI) | payer BC ==
[2023-03-26 18:49] LABS: BACTERIAL VAGINOSIS DNA NEGATIVE (NEGATIVE); CANDIDA GLABRATA DNA NEGATIVE (NEGATIVE); CANDIDA GROUP DNA NEGATIVE (NEGATIVE); CANDIDA KRUSEI DNA NEGATIVE (NEGATIVE); TRICHOMONAS VAGINALIS DNA NEGATIVE (NEGATIVE)
== END 2023-03-26 12:38 | disposition home or self-care (01) ==
LOC: LAB 12:37
PROVIDERS: ATTEND Obstetrics & Gynecology
DX: L29.8 Other pruritus (principal)
CPT/HCPCS: 81514

== ENCOUNTER 2023-05-02 11:30 | Emergency (ER) | payer BC ==
[2023-05-02] MEDS ORDERED: KETOROLAC 15 MG/ML VIAL IVP STA (11:47)
--- NOTE | 2023-05-02 11:48 | ED Physician Documentation ---
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 It is not associated with any changes in bowel movements. She denies fevers but has had chills with this. No other abdominal surgeries. 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: LEEP (Cervical surgery) - Present Medications Home Medications: Ambulatory Orders Medication Instructions Recorded Confirmed Hydroxychloroquine [Plaquenil] 200 mg PO BID 10/19/15 10/19/15 Budesonide/Formoterol Fumarate 1 inhaler PO BID 03/26/16 [Symbicort 80-4.5 Mcg Inhaler] Lidocaine Patch 5% [Lidoderm Patch] 1 each TOP DAILY PRN #10 patch 08/05/17 Valacyclovir HCl [Valtrex] 1,000 mg PO TID #21 tablet 08/05/17 Amox/Clav 875/125 [Augmentin] 1 each PO TID #21 tablet 05/02/23 Ondansetron Odt [Zofran] 4 mg TL Q6H PRN #10 tablet 05/02/23 metroNIDAZOLE [Flagyl] 500 mg PO TID 7 Days #21 tablet 05/02/23 - Allergies Allergies/Adverse Reactions: Allergies Allergy/AdvReac Type Severity Reaction Status Date / Time Cephalosporins Allergy Intermediate Hives Verified 08/05/17 15:54 diphenhydramine Allergy Intermediate Hives Verified 08/05/17 15:54 - Social History Does the pt smoke?: No Smoking Status: Never smoker Does the pt drink ETOH?: Yes Does the pt have substance abuse?: No - Immunizations Immunizations are current?: Yes - POLST Patient has POLST: No PD ED PE NORMAL - Vitals Vital signs reviewed: Yes - General General: Alert and oriented X 3, No acute distress - Cardiac Cardiac: RRR, No murmur - Respiratory Respiratory: No respiratory distress, Clear bilaterally - Abdomen Abdomen: Normal bowel sounds, Soft, Non tender - Derm Derm: No rash (No shingles rash) - Neuro Neuro: Alert and oriented X 3, Normal speech Results - Vitals Vitals: Vital Signs - 24 hr 05/02/23 11:35 Temperature 36.8 C Heart Rate 88 Respiratory 18 Rate Blood Pressure 137/86 H O2 Saturation 99 Oxygen O2 Source Room air - Labs Labs: Laboratory Tests 05/02/23 05/02/23 05/02/23 11:50 11:50 11:53 WBC 6.9 RBC 4.43 Hgb 14.6 Hct 43.3 MCV 97.7 MCH 33.0 H MCHC 33.7 RDW 13.1 Plt Count 323 MPV 9.5 Neut # (Auto) 3.3 Lymph # (Auto) 2.6 [place] # (Auto) 0.7 Eos # (Auto) 0.2 Baso # (Auto) 0.1 Absolute Nucleated RBC 0.00 Nucleated RBC % 0.0 Sodium 137 Potassium 3.6 Chloride 104 Carbon Dioxide 28 Anion Gap 5.0 L BUN 8 Creatinine 0.7 Estimated GFR (MDRD) 94 Glucose 118 H Calcium 9.6 Total Bilirubin 0.6 AST 23 ALT 18 Alkaline Phosphatase 39 L Total Protein 7.6 Albumin 4.4 Globulin 3.2 Albumin/Globulin Ratio 1.4 Lipase 31 Urine Color YELLOW Urine Clarity CLEAR Urine pH 6.0 Ur Specific [place] <=1.005 Urine Protein NEGATIVE Urine Glucose (UA) NEGATIVE Urine Ketones NEGATIVE Urine Occult Blood TRACE-INTA Urine Nitrite NEGATIVE Urine Bilirubin NEGATIVE Urine Urobilinogen 0.2 (NORMAL) Ur Leukocyte Esterase NEGATIVE Ur Microscopic Review NOT INDICATED Urine Culture Comments NOT INDICATED Urine HCG, Qual NEGATIVE PD Medical Decision Making - ED course ED course: 38-year-old woman with history of diverticulitis with 4 days of left lower quadrant pain reminiscent of prior diverticulitis. Fairly benign exam. Blood work obtained, CBC, CMP, urinalysis normal/negative. Negative test. We discussed CT scanning, but given the relatively benign exam and labs seems reasonable to treat presumptively for diverticulitis. Given her underlying inflammatory bowel disease, probably would not choose antibiotic free regiment and she specific requests Augmentin and Flagyl which is not unreasonable. Departure - Departure Disposition: 01 Home, Self Care Clinical Impression: Diverticulitis of gastrointestinal tract Condition: Good Record reviewed to determine appropriate education?: Yes Instructions: Diet Low Residue, ED Diverticulitis, ED Diet Clear Liquid Prescriptions: Amox/Clav 875/125 [Augmentin] 1 each PO TID #21 tablet metroNIDAZOLE [Flagyl] 500 mg PO TID 7 Days #21 tablet Ondansetron Odt [Zofran] 4 mg TL Q6H PRN #10 tablet PRN Reason: Nausea / Vomiting Comments: I sent your prescription electronically to [facility] in [place]. Your white count is 6, the rest of your labs are normal/unremarkable. Call your GI on Wednesday, they may want to reschedule your upcoming colonoscopy given this. Clear liquid diet for the next 24 hours, then a low residue diet for 48 hours. Dietary instructions are attached. I would like to see you improving over the next couple of days. Return in that timeframe if not.
[2023-05-02 11:56] LABS: BASOPHILS # (AUTO) 0.1 10^3/uL (0.0-0.1); EOSINOPHILS # (AUTO) 0.2 10^3/uL (0.0-0.7); EOSINOPHILS % (AUTO) 3.1 %; HCT - HEMATOCRIT 43.3 % (37.0-47.0); HGB - HEMOGLOBIN 14.6 g/dL (12.0-16.0); LYMPHOCYTES # (AUTO) 2.6 10^3/uL (1.5-3.5); LYMPHOCYTES % (AUTO) 37.8 %; MEAN CORPUSCULAR HGB CONC 33.7 g/dL (32.0-36.0); MEAN CORPUSCULAR VOLUME 97.7 fL (81.0-99.0); MEAN PLATELET VOLUME 9.5 fL (7.9-10.8); MONOCYTES # (AUTO) 0.7 10^3/uL (0.0-1.0); MONOCYTES % (AUTO) 10.2 %; NEUTROPHILS # (AUTO) 3.3 10^3/uL (1.5-6.6); NEUTROPHILS % (AUTO) 47.6 %; PLT - PLATELET COUNT 323 10^3/uL (130-450); RED BLOOD COUNT 4.43 10^6/uL (4.20-5.40); RED CELL DISTRIBUTION WIDTH 13.1 % (12.0-15.0); WHITE BLOOD COUNT 6.9 x10^3/uL (4.8-10.8)
[2023-05-02 12:13] LABS: ALBUMIN 4.4 g/dL (3.2-5.5); ALBUMIN/GLOBULIN RATIO 1.4 (1.0-2.2); BILIRUBIN,TOTAL 0.6 mg/dL (0.2-1.0); CALCIUM 9.6 mg/dL (8.5-10.3); CREATININE 0.7 mg/dL (0.6-1.3); POTASSIUM 3.6 mmol/L (3.5-4.5); TOTAL PROTEIN 7.6 g/dL (6.4-8.9)
[2023-05-02 12:16] LABS: BILIRUBIN,URINE NEGATIVE (NEGATIVE); GLUCOSE, URINE (UA) NEGATIVE (NEGATIVE); KETONES,URINE (UA) NEGATIVE (NEGATIVE); LEUKOCYTE ESTERASE, URINE NEGATIVE (NEGATIVE); NITRITE,URINE NEGATIVE (NEGATIVE); OCCULT BLOOD,URINE TRACE-INTA (NEGATIVE); PROTEIN,URINE NEGATIVE (NEGATIVE); UROBILINOGEN,URINE 0.2 (NORMAL) E.U./dL (NORMAL)
[2023-05-02 12:17] LABS: CLARITY,URINE CLEAR (CLEAR)
[2023-05-02 12:18] LABS: HCG UR QUAL NEGATIVE
[2023-05-02 12:40] VITALS: BP 123/90; O2SAT 100
== END 2023-05-02 12:33 | disposition home or self-care (01) ==
LOC: ED 11:30
DX: K57.92 Diverticulitis of intestine, part unspecified, without perforation or abscess without bleeding (principal)
CPT/HCPCS: 36415; 80053; 81001; 81003; 81025; 83690; 85025; 87086; 96374; 99284

== ENCOUNTER 2023-07-12 08:00 | Outpatient (CLI) | payer BC ==
[2023-07-12 07:48] LABS: BILIRUBIN,URINE NEGATIVE (NEGATIVE); GLUCOSE, URINE (UA) NEGATIVE (NEGATIVE); KETONES,URINE (UA) NEGATIVE (NEGATIVE); LEUKOCYTE ESTERASE, URINE TRACE (NEGATIVE); NITRITE,URINE NEGATIVE (NEGATIVE); OCCULT BLOOD,URINE SMALL (NEGATIVE); PROTEIN,URINE NEGATIVE (NEGATIVE); UROBILINOGEN,URINE 0.2 (NORMAL) E.U./dL (NORMAL)
[2023-07-12 08:07] LABS: BACTERIA,URINE Moderate /HPF (None Seen); CLARITY,URINE CLEAR (CLEAR); SQUAMOUS EPITHELIAL CELL,UR FEW Squamous (<= Few)
[2023-07-12 10:03] LABS: BACTERIAL VAGINOSIS DNA NEGATIVE (NEGATIVE); CANDIDA GLABRATA DNA NEGATIVE (NEGATIVE); CANDIDA GROUP DNA NEGATIVE (NEGATIVE); CANDIDA KRUSEI DNA NEGATIVE (NEGATIVE); TRICHOMONAS VAGINALIS DNA NEGATIVE (NEGATIVE)
[2023-07-12 12:18] LABS: CHLAMYDIA TRACHOMATIS DNA NEGATIVE (NEGATIVE); NEISSERIA GONORRHOEAE DNA NEGATIVE (NEGATIVE)
== END 2023-07-12 23:59 | disposition home or self-care (01) ==
LOC: LAB.WC 08:00
PROVIDERS: ATTEND Nurse Practitioner
DX: N30.90 Cystitis, unspecified without hematuria (principal)
CPT/HCPCS: 81001; 81514; 87077; 87086; 87491; 87591; 87661

== ENCOUNTER 2023-08-17 10:47 | Outpatient (CLI) | payer BC ==
--- NOTE | 2023-08-17 11:28 | Sleep Patient Instructions ---
Sleep Center Visit Summary - Patient Visit Information Reason for Visit: Annual Visit - Patient Instructions Additional Instructions: You will continue with CPAP therapy with pressure set at 7-9 cmH2O. A supply prescription will be updated with your DME once you call with type of mask to order. We encourage you to continue to try to lose weight. Please follow up with the sleep care office in 1-2 months. - Clinic Information Contact: [facility] [address] [place] [id number] [email or web address] T: [phone]
--- NOTE | 2023-08-17 11:36 | SLEEP CARE CONSULTATION ---
Information from patient questionnaire entered by Daniela Foote. I have reviewed and concur with the information entered by Daniela Foote. This document represents the service I personally performed and the decisions made by me, Shreya Smith ARNP. History of Present Illness Service Date and Time: 08/17/2023 1047 Previous diagnosis: Moderate, Obstructive Sleep Apnea-Hypopnea Syndrome AHI: 15.1 Reason for follow up: annual (LAST SEEN 06/2021) Equipment type: CPAP (DREAMSTATION 2; s/u 12/20/2020) Equipment obtained from: Other ([employer]; getting supplies as needed) Mask style: Full face Mask brand: Respironics (Dreamwear) Backup mask available: No Last cushion change: 1 year, at least Prior sleep studies: Yes Year and Where: 2019 [facility] Type of Sleep Study: Home sleep study HPI additional information: JAVIER AG was diagnosed to have moderate, AHI 15.1, obstructive sleep apnea- hypopnea syndrome and returned today for CPAP therapy annual follow-up. Sleep Study - Results Type of Sleep Study: Home sleep study Prior sleep studies: Yes Year and Where: 2019 [facility] CPAP Compliance Data - Data Reviewed with Patient Average duration of nightly device use: 3 HRS 57 MINS 54 SEC Compliance rate %: 4.7 (04/14/23-04/13/23; 33/365 days used; 6.7 in last 30 days) Current pressure setting (cmH2O): 7-8 Average residual AHI: 4.4 Central apnea: 0.4 Obstructive apnea: 1.8 Hypopnea: 2.2 Average large leak: 0 secs Subjective Patient concerns: reports: mask discomfort, air blowing in eyes, dry mouth, nose, throat. denies: aerophagia, mask leak noise, condensation in mask/hose, nasal congestion, epistaxis Observed to snore while using device: No Current pressure setting perceived as: comfortable On therapy, patient: reports: sleeping better, awakening more refreshed, being more awake and alert during the day, more rested overall. denies: drowsiness while driving Initial [place] Sleepiness Scale score: 10 (in 2020) Current [place] Sleepiness Scale score: 10 Allergies and Home Medications Known drug allergies: Yes (as listed) Drug allergies reviewed: Yes Home medication list reviewed: Yes (Lexapro, cymbalta, Valtrex, Humira; Mirena) Allergy and home medication list: Allergies Cephalosporins Allergy (Intermediate, Verified 08/16/23 08:58) Hives diphenhydramine Allergy (Intermediate, Verified 08/16/23 08:58) Hives Review of Systems Review of systems same as previous: Yes (no changes) Physical Exam Vital signs obtained and entered by: SHREYA THOMPSONP-Prema Blood Pressure: 125/81 Cuff size: wrist (right) Heart Rate: 88 O2 Saturation: 97 Height: 5 ft 7 in Weight: 272 lb 9.6 oz Weight change since last visit: 15 lb gain Body Mass Index: 42.7 BMI Classification: Morbidly Obese Impression and Plan 1. Obstructive Sleep Apnea-Hypopnea Syndrome, moderate, with poor treatment compliance and good apnea control. On CPAP therapy, the patient has better sleep quality and is more rested overall. Patient has had poor compliance mainly because she has not been able to update her mask set for over a year. The headset is really stretched out in the cushion is not fitting properly. She is getting a lot of leaks up into her eyes. She needs an updated prescription to get more supplies. 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 I fitted her to a Dreamwisp, medium cushion to use at home with her machine. She wants to try it and may change her mask type from the fullface DreamWear hybrid to the Dreamwisp. She will call me at the end of the week to let me know which mask she wants to continue. I will update her prescription at that time with [facility]. Patient's apnea severity and rationale for treatment to reduce apnea, improve sleep quality and reduce cardiovascular and cerebrovascular events was reviewed. I also reviewed the benefit of consistent device use of CPAP for depression/anxiety and fibromyalgia. 2. Obesity, unspecified. Currently patients BMI is 42.7. Obesity increases the risk of apnea, CPAP pressure requirements and overall health risks especially cardiovascular and diabetes. Thus patient is advised to try to lose weight. * Continue auto CPAP pressure at 7-8 cmH2O * Try Nasal mask; DreamWisp * Update supply prescription after patient calls with mask choice * Notify me if snoring with mask or feeling that the pressure is too much or too little * Attempt to lose weight * Call this office if any problems using CPAP * Return for follow up in 1-2 months, or sooner if concerns arise Mask provided: Yes Counseling Topics: Spare mask, Weight loss health impact Prescriptions: Device supplies Follow up with Sleep Care in: 1-2 months Visit Type: In Office Time Spent with Patient (minutes): 29 Provider Statement: I spent 100% of the Face to Face Visit with the patient with greater than 50% spent counseling the patient and coordination of care.
[2023-08-17 11:39] VITALS: BP 125/81; O2SAT 97
== END 2023-08-17 10:48 | disposition home or self-care (01) ==
LOC: SC 10:47
PROVIDERS: ATTEND Nurse Practitioner Family
DX: G47.33 Obstructive sleep apnea (adult) (pediatric) (principal); E66.01 Morbid (severe) obesity due to excess calories; Z68.41 Body mass index [BMI] 40.0-44.9, adult
CPT/HCPCS: 99212; 99213

== ENCOUNTER 2024-01-25 14:35 | Outpatient (CLI) | payer BC ==
[2024-01-25 19:31] LABS: BACTERIAL VAGINOSIS DNA NEGATIVE (NEGATIVE)
[2024-01-25 19:32] LABS: CANDIDA GLABRATA DNA NEGATIVE (NEGATIVE); CANDIDA GROUP DNA POSITIVE (NEGATIVE); CANDIDA KRUSEI DNA NEGATIVE (NEGATIVE); TRICHOMONAS VAGINALIS DNA NEGATIVE (NEGATIVE)
[2024-01-25 23:09] LABS: CHLAMYDIA TRACHOMATIS DNA NEGATIVE (NEGATIVE); NEISSERIA GONORRHOEAE DNA NEGATIVE (NEGATIVE)
== END 2024-01-25 14:36 | disposition home or self-care (01) ==
LOC: LAB 14:35
PROVIDERS: ATTEND Nurse Practitioner
DX: N89.8 Other specified noninflammatory disorders of vagina (principal)
CPT/HCPCS: 81514; 87491; 87591; 87661

== ENCOUNTER 2024-02-09 08:00 | Outpatient (CLI) | payer BC ==
[2024-02-09 07:38] LABS: CHOL/HDL RATIO 3.9 (<4.4); CHOLESTEROL 181 mg/dL; HDL CHOLESTEROL 46 mg/dL; LDL CHOLESTEROL,CALCULATED 109 mg/dL; LDL/HDL RATIO 2.4 (<4.4); TRIGLYCERIDES 132 mg/dL (48-352); VLDL CHOLESTEROL 26 mg/dL
[2024-02-09 07:51] LABS: ALBUMIN 4.4 g/dL (3.2-5.5); ALBUMIN/GLOBULIN RATIO 1.4 (1.0-2.2); ALKALINE PHOSPHATASE 34 IU/L (42-121); ALT ALANINE AMINOTRANSFERASE 16 IU/L (10-60); AST ASPARTATE AMINOTRANSFERASE 23 IU/L (10-42); BILIRUBIN,TOTAL 0.6 mg/dL (0.2-1.0); BUN - BLOOD UREA NITROGEN 9 mg/dL (6-20); CALCIUM 9.7 mg/dL (8.5-10.3); CREATININE 0.7 mg/dL (0.6-1.3); GFR - MDRD 94 (>89); GLUCOSE 115 mg/dL (74-104); TOTAL PROTEIN 7.5 g/dL (6.4-8.9)
[2024-02-09 07:53] LABS: THYROID STIMULATING HORMONE 1.44 uIU/mL (0.34-5.60)
[2024-02-09 07:59] LABS: FERRITIN 40.9 ng/mL (11.0-306.8)
[2024-02-09 09:51] LABS: ESTIMATED AVERAGE GLUCOSE 111 mg/dL (70-100); HEMOGLOBIN A1c% 5.5 % (4.27-6.07)
[2024-02-09 14:35] LABS: POTASSIUM 3.9 mmol/L (3.5-4.5); SODIUM 137 mmol/L (135-145)
[2024-02-09 14:36] LABS: CARBON DIOXIDE - CO2 28 mmol/L (21-32); CHLORIDE 102 mmol/L (101-111)
[2024-02-10 03:11] LABS: HEPATITIS BE ANTIGEN Negative (Negative)
[2024-02-10 05:13] LABS: RPR Non Reactive (Non Reactive)
== END 2024-02-09 23:59 | disposition home or self-care (01) ==
LOC: LAB 08:00
PROVIDERS: ATTEND Nurse Practitioner
DX: K50.90 Crohn's disease, unspecified, without complications (principal); Z13.220 Encounter for screening for lipoid disorders; Z13.0 Encounter for screening for diseases of the blood and blood-forming organs and certain disorders involving the immune mechanism; B37.9 Candidiasis, unspecified; Z11.3 Encounter for screening for infections with a predominantly sexual mode of transmission; Z13.29 Encounter for screening for other suspected endocrine disorder
CPT/HCPCS: 36415; 80053; 80061; 82728; 83036; 83721; 84443; 86592; 86803; 87350